=== PATIENT | female | born 1940 | race Two or more races ===

== ENCOUNTER 2020-09-25 21:04 | Inpatient (IN) | payer BC, MEDICARE ==
[~2020-09-25] VITALS: Ht 162.6 cm; Wt 90.0 kg
[2020-09-25 22:33] LABS: Basophils # (auto) 0 10 ^3/uL (0-0.2); Basophils % (auto) 0.5 % (0.0-2.0); Eosinophils # (auto) 0.1 10 ^3/uL (0-0.8); Eosinophils % (auto) 1.1 % (0.0-7.0); Hematocrit 37.3 % (36.0-46.0); Hemoglobin 12.8 g/dL (12.2-16.2); Lymphocytes # (auto) 0.8 10 ^3/uL (0.4-5.4); Lymphocytes % (auto) 8.4 % (10.0-50.0); Mean Corpuscular Hemoglobin 32.3 pg (28.0-32.0); Mean Corpuscular Hgb Conc. 34.4 g/dL (32.0-36.0); Mean Corpuscular Volume 93.7 fL (80.0-100.0); Monocytes # (auto) 0.8 10 ^3/uL (0-1.3); Monocytes % (auto) 8.5 % (0.0-12.0); Neutrophils # (auto) 7.9 10 ^3/uL (1.6-8.6); Neutrophils % (auto) 81.5 % (37.0-80.0); Red Blood Cells 3.98 10^6/uL (4.0-5.20); White Blood Cell 9.7 10^3/uL (4.4-10.8)
[2020-09-25 22:48] LABS: Albumin 2.4 g/dL (3.4-5.0); Anion Gap 11 (5-15); Calcium 8.4 mg/dL (8.5-10.1); Carbon Dioxide 19 mmol/L (21-32); Chloride 87 mmol/L (98-107); Glucose 109 mg/dL (74-106)
[2020-09-25 22:53] LABS: Urine Bacteria NONE SEEN /hpf (None Seen); Urine Blood 2+ /uL (Negative); Urine Budding Yeast MODERATE /hpf (None Seen); Urine Specific Gravity 1.014 (1.001-1.035); Urine WBC 72 /hpf (0 - 5); Urine WBC Clumps PRESENT /hpf (None Seen)
[2020-09-25 22:55] LABS: Alanine Aminotransferase 39 U/L (13-56); Alkaline Phosphatase 201 U/L (45-117); Aspartate Aminotransferase 55 U/L (15-37); BUN/Creatinine Ratio 20.2; Bilirubin, Total 0.9 mg/dL (0.2-1.0); GFR African American 8 mL/min; GFR Non-African American 7 mL/min; Total Protein 7.3 g/dL (6.4-8.2)
[2020-09-25 23:02] LABS: Blood Urea Nitrogen 132 mg/dL (7-18); Potassium 6.8 mmol/L (3.5-5.1); Sodium 117 mmol/L (136-145)
[2020-09-25] MEDS ORDERED: cefTRIAXone 1GM/50ML D5W 50 ML IV ONE (23:15)
[2020-09-25] MEDS ORDERED: DEXTROSE (50%) 50ML SYRG IV ONE (23:15)
[2020-09-25] MEDS ORDERED: ALBUTEROL SULF 2.5 MG/0.5ML(0.5%) NEB SOLN NEB ONE (23:15)
[2020-09-25] MEDS ORDERED: CALCIUM GLUC 1,000mg/50ml-NS 50 ML IV ONE (23:15)
[2020-09-25] MEDS ORDERED: SODIUM BICARBONATE 8.4% INJ 50ML SYRINGE IV ONE (23:15)
[2020-09-25] MEDS ORDERED: InsuLIN REG 1unit/0.01ml Soln (100units/ml) IV ONE (23:15)
[2020-09-25] MEDS ORDERED: SODIUM CHLORIDE 0.9% 1,000 ML IV ONE (23:45)
[2020-09-26] MEDS ORDERED: ONDANSETRON HCL 4 MG/2 ML VIAL IV PRN (00:45)
[2020-09-26] MEDS ORDERED: MORPHINE SULFATE INJECTION 2 MG/ML SYRG IV PRN (00:45)
[2020-09-26] MEDS ORDERED: SODIUM ZIRCONIUM CYCL 10 GM PAK PO ONE (00:45)
[2020-09-26] MEDS ORDERED: cefTRIAXone 1GM/50ML D5W 50 ML IV ONE (00:45)
[2020-09-26] MEDS ORDERED: SODIUM CHLORIDE 0.9% 500 ML IV ONE (00:45)
[2020-09-26] MEDS ORDERED: SODIUM CHLORIDE 0.9% 1,000 ML IV SCH (00:45)
[2020-09-26] MEDS ORDERED: NITROGLYCERIN 0.4 MG SL TAB SL PRN (00:45)
[2020-09-26] MEDS: LACTULOSE 20Gm/30ML SOLN PO SCH ×3 (01:33→21:22)
[2020-09-26 05:00] VITALS: BP 121/63
[2020-09-26 05:22] VITALS: BP 129/47
[2020-09-26] MEDS ORDERED: LISI20TA28 PO (08:01)
[2020-09-26] MEDS ORDERED: LEVO25TA6 PO (08:01)
[2020-09-26] MEDS ORDERED: AMIT50TA5 PO (08:01)
[2020-09-26] MEDS ORDERED: OMEP20TA PO (08:01)
[2020-09-26 09:00] VITALS: BP 120/53
[2020-09-26 10:15] LABS: Albumin 2.2 g/dL (3.4-5.0); Calcium 8.5 mg/dL (8.5-10.1); Magnesium 3.3 mg/dL (1.6-2.6); Potassium 5.4 mmol/L (3.5-5.1)
[2020-09-26 10:19] LABS: BUN/Creatinine Ratio 27.9; Bilirubin, Total 0.8 mg/dL (0.2-1.0); Phosphorus 5.4 mg/dL (2.5-4.90); Total Protein 7.1 g/dL (6.4-8.2)
[2020-09-26 10:20] LABS: Lactic Acid w/Reflex 2.6 mmol/L (0.4-2.0)
[2020-09-26 10:23] LABS: Folate (Folic Acid) 9.01 ng/mL (5.38-24)
[2020-09-26] MEDS: PANTOPRAZOLE 40 MG/10 ML VIAL INJ IV SCH (10:23)
[2020-09-26] MEDS: ACETAMINOPHEN 325 MG TAB PO PRN ×2 (10:24→17:29)
[2020-09-26] MEDS: SODIUM CHLORIDE 0.9% 1,000 ML IV SCH ×2 (10:30→17:47)
[2020-09-26 11:06] LABS: INR 1.14 (0.9-1.15); Partial Thromboplastin Time 36.4 sec (23.0-31.2)
[2020-09-26 12:30] VITALS: BP 126/58
[2020-09-26] MEDS ORDERED: OMEP-434 PO (15:38)
[2020-09-26] MEDS ORDERED: IBUP200C3 PO (15:39)
[2020-09-26] MEDS ORDERED: OMEG306C PO (15:41)
[2020-09-26] MEDS ORDERED: B-COCAP34 PO (15:41)
[2020-09-26 17:00] VITALS: BP 134/72
[2020-09-26 19:01] LABS: Creatinine, Urine 47 mg/dL (30.0-125.0); Protein, Urine < 5.0 mg/dL (0.0-11.9)
[2020-09-26 19:03] LABS: Amphetamine Screen, Urine NEGATIVE (NEGATIVE); Barbiturate Scree,Urine NEGATIVE (NEGATIVE); Benzodiazephine Screen, Urine NEGATIVE (NEGATIVE); Cannabinoid Screen, Urine NEGATIVE (NEGATIVE); Cocaine Screen, Urine NEGATIVE (NEGATIVE); Opiate Scree,Urine NEGATIVE (NEGATIVE); Phencyclidine Screen, Urine NEGATIVE (NEGATIVE)
[2020-09-26] MEDS ORDERED: D5W 5% 1,000 ML IV ONE (21:15)
[2020-09-26] MEDS: cefTRIAXone 1GM/50ML D5W 50 ML IV SCH (21:23)
[2020-09-26 21:42] VITALS: BP 134/67
[2020-09-26 21:47] LABS: Creatinine, Urine 49 mg/dL (30.0-125.0); Sodium Urine 14 mmol/L (40-220)
[2020-09-27 05:04] VITALS: BP 138/77
[2020-09-27 06:58] LABS: Basophils # (auto) 0.1 10 ^3/uL (0-0.2); Basophils % (auto) 1.1 % (0.0-2.0); Eosinophils # (auto) 0.2 10 ^3/uL (0-0.8); Hematocrit 33.1 % (36.0-46.0); Hemoglobin 11.4 g/dL (12.2-16.2); Lymphocytes # (auto) 0.9 10 ^3/uL (0.4-5.4); Lymphocytes % (auto) 14.2 % (10.0-50.0); Mean Corpuscular Hemoglobin 32.2 pg (28.0-32.0); Mean Corpuscular Hgb Conc. 34.6 g/dL (32.0-36.0); Mean Corpuscular Volume 93.1 fL (80.0-100.0); Monocytes # (auto) 0.8 10 ^3/uL (0-1.3); Monocytes % (auto) 12.3 % (0.0-12.0); Neutrophils # (auto) 4.4 10 ^3/uL (1.6-8.6); Neutrophils % (auto) 69.4 % (37.0-80.0); Red Blood Cells 3.56 10^6/uL (4.0-5.20); Red Cell Distribution Width 14.8 % (11.8-14.3); White Blood Cell 6.4 10^3/uL (4.4-10.8)
[2020-09-27 07:22] LABS: Albumin 1.9 g/dL (3.4-5.0); Calcium 8.3 mg/dL (8.5-10.1); Potassium 4.6 mmol/L (3.5-5.1)
[2020-09-27 07:27] LABS: BUN/Creatinine Ratio 45.3; Bilirubin, Total 0.7 mg/dL (0.2-1.0)
[2020-09-27] MEDS: LACTULOSE 20Gm/30ML SOLN PO SCH ×2 (08:25→21:38)
[2020-09-27] MEDS: PANTOPRAZOLE 40 MG/10 ML VIAL INJ IV SCH (08:25)
[2020-09-27 08:54] VITALS: BP 141/70
[2020-09-27] MEDS ORDERED: ENOXAPARIN SOD 30 MG/0.3 ML SYRINGE SC ONE (12:00)
[2020-09-27 13:00] VITALS: BP 121/73
[2020-09-27 17:00] VITALS: BP 114/58
[2020-09-27] MEDS: ACETAMINOPHEN 325 MG TAB PO PRN (17:53)
[2020-09-27] MEDS: cefTRIAXone 1GM/50ML D5W 50 ML IV SCH (21:38)
[2020-09-27 22:00] VITALS: BP 138/73
[2020-09-28 05:00] VITALS: BP 127/70
[2020-09-28 06:43] LABS: Basophils # (auto) 0 10 ^3/uL (0-0.2); Basophils % (auto) 0.5 % (0.0-2.0); Eosinophils # (auto) 0.2 10 ^3/uL (0-0.8); Eosinophils % (auto) 2.4 % (0.0-7.0); Hematocrit 35.8 % (36.0-46.0); Hemoglobin 12.3 g/dL (12.2-16.2); Lymphocytes # (auto) 1.1 10 ^3/uL (0.4-5.4); Lymphocytes % (auto) 14.9 % (10.0-50.0); Mean Corpuscular Hemoglobin 32.4 pg (28.0-32.0); Mean Corpuscular Hgb Conc. 34.3 g/dL (32.0-36.0); Mean Corpuscular Volume 94.4 fL (80.0-100.0); Monocytes # (auto) 0.8 10 ^3/uL (0-1.3); Monocytes % (auto) 10.3 % (0.0-12.0); Neutrophils # (auto) 5.3 10 ^3/uL (1.6-8.6); Neutrophils % (auto) 71.9 % (37.0-80.0); Red Blood Cells 3.79 10^6/uL (4.0-5.20); Red Cell Distribution Width 14.7 % (11.8-14.3); White Blood Cell 7.3 10^3/uL (4.4-10.8)
[2020-09-28 07:22] LABS: BUN/Creatinine Ratio 58.1; Calcium 8.3 mg/dL (8.5-10.1); Magnesium 2.1 mg/dL (1.6-2.6); Phosphorus 1.8 mg/dL (2.5-4.90); Potassium 4.2 mmol/L (3.5-5.1)
[2020-09-28] MEDS: LACTULOSE 20Gm/30ML SOLN PO SCH ×3 (08:00→22:39)
[2020-09-28] MEDS: ENOXAPARIN SOD 30 MG/0.3 ML SYRINGE SC SCH (08:00)
[2020-09-28] MEDS: PANTOPRAZOLE 40 MG/10 ML VIAL INJ IV SCH (08:00)
[2020-09-28 10:04] VITALS: BP 137/75
[2020-09-28 12:30] VITALS: BP 148/79
[2020-09-28] MEDS ORDERED: POTASSIUM PHOSPHATE 26.4 MEQ in SODIUM CHL 0.9% 100 ML IV ONE (12:45)
[2020-09-28] MEDS: ACETAMINOPHEN 325 MG TAB PO PRN (13:09)
[2020-09-28 17:00] VITALS: BP 135/76
[2020-09-28 22:00] VITALS: BP 155/65
[2020-09-28] MEDS: cefTRIAXone 1GM/50ML D5W 50 ML IV SCH (22:38)
[2020-09-29 05:00] VITALS: BP 134/71
[2020-09-29] MEDS: LACTULOSE 20Gm/30ML SOLN PO SCH ×3 (06:42→22:11)
[2020-09-29 08:05] LABS: BUN/Creatinine Ratio 43.3; Calcium 8.2 mg/dL (8.5-10.1); Magnesium 1.9 mg/dL (1.6-2.6); Phosphorus 2.3 mg/dL (2.5-4.90); Potassium 4.4 mmol/L (3.5-5.1)
[2020-09-29] MEDS: PANTOPRAZOLE 40 MG/10 ML VIAL INJ IV SCH (08:58)
[2020-09-29] MEDS: ENOXAPARIN SOD 30 MG/0.3 ML SYRINGE SC SCH (08:58)
[2020-09-29 09:00] VITALS: BP 135/78
[2020-09-29] MEDS ORDERED: POTASSIUM PHOSPHATE 22 MEQ in SODIUM CHL 0.9% 100 ML IV ONE (10:45)
[2020-09-29] MEDS ORDERED: D5W 5% 1,000 ML IV SCH ×2 (10:45→17:30)
[2020-09-29] MEDS: MAGNESIUM SULFATE 1GM/100ML 100 ML IV SCH ×2 (11:27→12:00)
[2020-09-29 13:00] VITALS: BP 148/78
[2020-09-29 17:00] VITALS: BP 139/71
[2020-09-29] MEDS ORDERED: FLUCONAZOLE 200MG/100ML 100 ML IV SCH (22:00)
[2020-09-29] MEDS: cefTRIAXone 1GM/50ML D5W 50 ML IV SCH (22:10)
[2020-09-29 22:20] VITALS: BP 149/73
[2020-09-30 05:07] VITALS: BP 148/70
[2020-09-30] MEDS: LACTULOSE 20Gm/30ML SOLN PO SCH ×3 (06:26→22:00)
[2020-09-30 08:40] VITALS: BP 143/75
[2020-09-30] MEDS: ENOXAPARIN SOD 30 MG/0.3 ML SYRINGE SC SCH (08:57)
[2020-09-30] MEDS: PANTOPRAZOLE 40 MG/10 ML VIAL INJ IV SCH (08:57)
[2020-09-30] MEDS: Ensure HIGH Protein Chocolate 8oz Bottle PO SCH ×2 (12:00→18:00)
[2020-09-30 13:00] VITALS: BP 137/82
[2020-09-30 16:39] VITALS: BP 129/71
[2020-09-30] MEDS: cefTRIAXone 1GM/50ML D5W 50 ML IV SCH (21:52)
[2020-09-30 22:25] VITALS: BP 139/74
[2020-10-01 05:26] VITALS: BP 137/73
[2020-10-01 06:19] LABS: Basophils # (auto) 0 10 ^3/uL (0-0.2); Basophils % (auto) 0.5 % (0.0-2.0); Eosinophils # (auto) 0.4 10 ^3/uL (0-0.8); Eosinophils % (auto) 3.7 % (0.0-7.0); Hematocrit 34.3 % (36.0-46.0); Lymphocytes # (auto) 1.6 10 ^3/uL (0.4-5.4); Lymphocytes % (auto) 16.5 % (10.0-50.0); Mean Corpuscular Volume 94.1 fL (80.0-100.0); Monocytes # (auto) 0.6 10 ^3/uL (0-1.3); Monocytes % (auto) 6.6 % (0.0-12.0); Neutrophils % (auto) 72.7 % (37.0-80.0); Red Blood Cells 3.65 10^6/uL (4.0-5.20); Red Cell Distribution Width 14.8 % (11.8-14.3); White Blood Cell 9.6 10^3/uL (4.4-10.8)
[2020-10-01 06:32] LABS: BUN/Creatinine Ratio 43.9; Calcium 7.8 mg/dL (8.5-10.1); Potassium 3.9 mmol/L (3.5-5.1)
[2020-10-01 09:00] VITALS: BP 129/72
[2020-10-01] MEDS: Ensure HIGH Protein Chocolate 8oz Bottle PO SCH ×3 (09:02→17:55)
[2020-10-01] MEDS: PANTOPRAZOLE 40 MG TAB PO SCH (12:05)
[2020-10-01] MEDS: LACTULOSE 20Gm/30ML SOLN PO SCH ×2 (12:05→21:34)
[2020-10-01] MEDS: ENOXAPARIN SOD 30 MG/0.3 ML SYRINGE SC SCH (12:05)
[2020-10-01 13:00] VITALS: BP 133/68
[2020-10-01 17:00] VITALS: BP 134/73
[2020-10-01] MEDS: cefTRIAXone 1GM/50ML D5W 50 ML IV SCH (21:35)
[2020-10-01 22:00] VITALS: BP 140/77
[2020-10-02 05:00] VITALS: BP 141/74
[2020-10-02] MEDS: Ensure HIGH Protein Chocolate 8oz Bottle PO SCH ×3 (08:11→18:00)
[2020-10-02 09:00] VITALS: BP 152/61
[2020-10-02] MEDS: LACTULOSE 20Gm/30ML SOLN PO SCH ×3 (09:29→21:24)
[2020-10-02] MEDS: ENOXAPARIN SOD 30 MG/0.3 ML SYRINGE SC SCH (09:29)
[2020-10-02] MEDS: PANTOPRAZOLE 40 MG TAB PO SCH (09:29)
[2020-10-02] MEDS: ACETAMINOPHEN 325 MG TAB PO PRN (09:30)
[2020-10-02 13:00] VITALS: BP 130/58
[2020-10-02 17:00] VITALS: BP 124/86
[2020-10-02] MEDS: cefTRIAXone 1GM/50ML D5W 50 ML IV SCH (21:24)
[2020-10-02 22:00] VITALS: BP 129/74
[2020-10-03 05:00] VITALS: BP 131/57
[2020-10-03] MEDS: Ensure HIGH Protein Chocolate 8oz Bottle PO SCH ×4 (08:00→18:00)
[2020-10-03 09:00] VITALS: BP 152/79
[2020-10-03] MEDS ORDERED: FLUCONAZOLE 100 MG TAB PO SCH (10:00)
[2020-10-03] MEDS: PANTOPRAZOLE 40 MG TAB PO SCH (10:18)
[2020-10-03] MEDS: LACTULOSE 20Gm/30ML SOLN PO SCH ×2 (10:18→22:23)
[2020-10-03] MEDS: CALCIUM CARB 500 MG CHEW TAB PO SCH ×2 (10:19→22:23)
[2020-10-03] MEDS: levoFLOXacin 500 MG TAB PO SCH (10:19)
[2020-10-03] MEDS: ENOXAPARIN SOD 40 MG/0.4 ML SYRINGE SC SCH (10:19)
[2020-10-03 12:54] VITALS: BP 115/48
[2020-10-03] MEDS: ACETAMINOPHEN 325 MG TAB PO PRN (16:04)
[2020-10-03 17:00] VITALS: BP 136/67
[2020-10-03] MEDS: Glucerna Carbsteady SHAKE Vanilla 8oz PO SCH (18:00)
[2020-10-03 20:59] LABS: Urine Bacteria FEW /hpf (None Seen); Urine Blood 3+ /uL (Negative); Urine Mucus FEW (None Seen); Urine WBC 19 /hpf (0 - 5)
[2020-10-03 22:00] VITALS: BP 130/77
[2020-10-04 05:00] VITALS: BP 149/65
[2020-10-04 07:16] LABS: Basophils # (auto) 0 10 ^3/uL (0-0.2); Basophils % (auto) 0.3 % (0.0-2.0); Eosinophils # (auto) 0.2 10 ^3/uL (0-0.8); Eosinophils % (auto) 1.7 % (0.0-7.0); Hematocrit 33.5 % (36.0-46.0); Hemoglobin 11.4 g/dL (12.2-16.2); Lymphocytes # (auto) 1.2 10 ^3/uL (0.4-5.4); Mean Corpuscular Hemoglobin 32.3 pg (28.0-32.0); Mean Corpuscular Volume 94.9 fL (80.0-100.0); Monocytes # (auto) 0.8 10 ^3/uL (0-1.3); Monocytes % (auto) 8.4 % (0.0-12.0); Neutrophils # (auto) 7.3 10 ^3/uL (1.6-8.6); Neutrophils % (auto) 76.6 % (37.0-80.0); Nucleated Red Blood Cells % 0.1 %; Red Blood Cells 3.53 10^6/uL (4.0-5.20); Red Cell Distribution Width 14.8 % (11.8-14.3); White Blood Cell 9.5 10^3/uL (4.4-10.8)
[2020-10-04 07:38] LABS: Albumin 2.1 g/dL (3.4-5.0); Calcium 7.7 mg/dL (8.5-10.1); Potassium 4.1 mmol/L (3.5-5.1)
[2020-10-04 07:43] LABS: BUN/Creatinine Ratio 38.1; Bilirubin, Total 1.6 mg/dL (0.2-1.0); Total Protein 5.9 g/dL (6.4-8.2)
[2020-10-04] MEDS: Glucerna Carbsteady SHAKE Vanilla 8oz PO SCH ×2 (08:00→18:29)
[2020-10-04] MEDS: Ensure HIGH Protein Chocolate 8oz Bottle PO SCH ×3 (08:00→18:29)
[2020-10-04 09:00] VITALS: BP 141/73
[2020-10-04] MEDS: Pro-Stat SF 30ml Vanilla PO SCH (10:00)
[2020-10-04] MEDS: LACTULOSE 20Gm/30ML SOLN PO SCH ×2 (11:22→21:31)
[2020-10-04] MEDS: FLUCONAZOLE 100 MG TAB PO SCH (11:22)
[2020-10-04] MEDS: ENOXAPARIN SOD 40 MG/0.4 ML SYRINGE SC SCH (11:23)
[2020-10-04] MEDS: levoFLOXacin 500 MG TAB PO SCH (11:23)
[2020-10-04] MEDS: CALCIUM CARB 500 MG CHEW TAB PO SCH ×2 (11:23→21:31)
[2020-10-04] MEDS: PANTOPRAZOLE 40 MG TAB PO SCH (11:24)
[2020-10-04 13:00] VITALS: BP 121/69
[2020-10-04 17:00] VITALS: BP 123/63
[2020-10-04 22:00] VITALS: BP 144/46
[2020-10-05 05:00] VITALS: BP 140/57
[2020-10-05 08:15] VITALS: BP 116/59
[2020-10-05] MEDS: Glucerna Carbsteady SHAKE Vanilla 8oz PO SCH ×2 (08:27→17:43)
[2020-10-05] MEDS: Ensure HIGH Protein Chocolate 8oz Bottle PO SCH ×3 (08:27→17:43)
[2020-10-05 08:52] VITALS: BP 116/59
[2020-10-05] MEDS: CALCIUM CARB 500 MG CHEW TAB PO SCH ×2 (10:02→21:21)
[2020-10-05] MEDS: Pro-Stat SF 30ml Vanilla PO SCH (10:02)
[2020-10-05] MEDS: ENOXAPARIN SOD 40 MG/0.4 ML SYRINGE SC SCH (10:02)
[2020-10-05] MEDS: PANTOPRAZOLE 40 MG TAB PO SCH (10:02)
[2020-10-05] MEDS: LACTULOSE 20Gm/30ML SOLN PO SCH ×2 (10:02→21:21)
[2020-10-05] MEDS: levoFLOXacin 500 MG TAB PO SCH (10:02)
[2020-10-05] MEDS: FLUCONAZOLE 100 MG TAB PO SCH (10:02)
[2020-10-05] MEDS ORDERED: POLYETHYLENE GLYCOL 17 GM PWDR PO ONE (11:45)
[2020-10-05 13:03] VITALS: BP 134/83
[2020-10-05] MEDS: ACETAMINOPHEN 325 MG TAB PO PRN (15:47)
[2020-10-05 16:57] VITALS: BP 139/64
[2020-10-05] MEDS ORDERED: FLEET ENEMA(ADULT) 135 ML PR ONE (21:18)
[2020-10-05 21:53] VITALS: BP 109/49
[2020-10-06] VITALS (7 sets, daily range): BP systolic 102–124; BP diastolic 49–77
[2020-10-06] MEDS: ACETAMINOPHEN 325 MG TAB PO PRN ×2 (01:54→10:31)
[2020-10-06] MEDS: Glucerna Carbsteady SHAKE Vanilla 8oz PO SCH (08:10)
[2020-10-06] MEDS: Ensure HIGH Protein Chocolate 8oz Bottle PO SCH ×3 (08:10→17:39)
[2020-10-06] MEDS ORDERED: BISACODYL 5 MG EC TAB PO ONE (08:15)
[2020-10-06] MEDS ORDERED: POLYETHYLENE GLYCOL 17 GM PWDR PO ONE (08:15)
[2020-10-06] MEDS: Pro-Stat SF 30ml Vanilla PO SCH (10:30)
[2020-10-06] MEDS: CALCIUM CARB 500 MG CHEW TAB PO SCH ×2 (10:30→23:22)
[2020-10-06] MEDS: LACTULOSE 20Gm/30ML SOLN PO SCH ×2 (10:30→23:22)
[2020-10-06] MEDS: FLUCONAZOLE 100 MG TAB PO SCH (10:30)
[2020-10-06] MEDS: levoFLOXacin 500 MG TAB PO SCH (10:30)
[2020-10-06] MEDS: PANTOPRAZOLE 40 MG TAB PO SCH (10:30)
[2020-10-06] MEDS: ENOXAPARIN SOD 40 MG/0.4 ML SYRINGE SC SCH (10:31)
[2020-10-07 05:00] VITALS: BP 122/72
[2020-10-07 08:15] VITALS: BP 134/66
[2020-10-07] MEDS: Ensure HIGH Protein Chocolate 8oz Bottle PO SCH ×2 (08:27→11:52)
[2020-10-07 09:00] VITALS: BP 134/66
[2020-10-07] MEDS ORDERED: POLYETHYLENE GLYCOL 17 GM PWDR PO SCH (10:00)
[2020-10-07] MEDS: PANTOPRAZOLE 40 MG TAB PO SCH (10:14)
[2020-10-07] MEDS: Pro-Stat SF 30ml Vanilla PO SCH (10:14)
[2020-10-07] MEDS: levoFLOXacin 500 MG TAB PO SCH (10:14)
[2020-10-07] MEDS: LACTULOSE 20Gm/30ML SOLN PO SCH (10:14)
[2020-10-07] MEDS: CALCIUM CARB 500 MG CHEW TAB PO SCH (10:14)
[2020-10-07] MEDS: ENOXAPARIN SOD 40 MG/0.4 ML SYRINGE SC SCH (10:14)
[2020-10-07] MEDS: FLUCONAZOLE 100 MG TAB PO SCH (10:14)
== END 2020-10-07 12:25 | DRG 441 ==
LOC: EDBD 21:04 → ER 21:07 → TELE 09-26 00:32 → TELE-CENTR 09-26 02:50 → CENTRAL 10-02 23:05
PROVIDERS: ADMIT Nurse Practitioner; ATTEND Internal Medicine
PROC: 05H933Z Insertion of Infusion Device into Right Brachial Vein, Percutaneous Approach (ICD-10-PCS; principal; 2020-09-29)
PROC: B54MZZA Ultrasonography of Right Upper Extremity Veins, Guidance (ICD-10-PCS; 2020-09-29)
DX: K72.90 Hepatic failure, unspecified without coma (principal); G92 Toxic encephalopathy; E43 Unspecified severe protein-calorie malnutrition; N17.0 Acute kidney failure with tubular necrosis; E87.1 Hypo-osmolality and hyponatremia; E72.20 Disorder of urea cycle metabolism, unspecified; N30.00 Acute cystitis without hematuria; E87.5 Hyperkalemia; E66.9 Obesity, unspecified; Z66 Do not resuscitate; K21.9 Gastro-esophageal reflux disease without esophagitis; Z20.822 Contact with and (suspected) exposure to COVID-19; E03.9 Hypothyroidism, unspecified; K76.0 Fatty (change of) liver, not elsewhere classified; Z68.36 Body mass index [BMI] 36.0-36.9, adult; F17.200 Nicotine dependence, unspecified, uncomplicated; I10 Essential (primary) hypertension; Z74.01 Bed confinement status; Z80.7 Family history of other malignant neoplasms of lymphoid, hematopoietic and related tissues; Z82.0 Family history of epilepsy and other diseases of the nervous system; Z83.3 Family history of diabetes mellitus; Z87.440 Personal history of urinary (tract) infections
CPT/HCPCS: 36415; 51702; 70450; 71045; 76775; 80048; 80053; 80307; 81001; 82140; 82306; 82550; 82570; 82607; 82746; 82962; 83036; 83605; 83735; 83880; 84100; 84156; 84295; 84300; 84443; 84484; 85025; 85610; 85730; 86592; 87040; 87081; 87086; 87088; 87426; 93005; 93306; 94640; 95819; 96361; 96365; 96367; 96375; 97110; 97116; 97530; C9113; G0378; J0696; J1450; J1815

== ENCOUNTER → 2021-02-14 | Outpatient (CLI) | payer MEDICARE, BC ==
[~2021-02-14] MED LIST: AMIT50TA5 PO; B-COCAP34 PO; IBUP200C3 PO; LEVO25TA6 PO; LISI20TA28 PO; OMEG306C PO; OMEP-434 PO
[2021-02-14 11:18] LABS: Basophils # (auto) 0 10 ^3/uL (0-0.2); Eosinophils # (auto) 0.2 10 ^3/uL (0-0.8); Eosinophils % (auto) 4.7 % (0.0-7.0); Hematocrit 34.5 % (36.0-46.0); Hemoglobin 11.7 g/dL (12.2-16.2); Lymphocytes # (auto) 1.2 10 ^3/uL (0.4-5.4); Lymphocytes % (auto) 36.9 % (10.0-50.0); Mean Corpuscular Hemoglobin 30.6 pg (28.0-32.0); Mean Corpuscular Hgb Conc. 33.8 g/dL (32.0-36.0); Mean Corpuscular Volume 90.4 fL (80.0-100.0); Monocytes # (auto) 0.4 10 ^3/uL (0-1.3); Monocytes % (auto) 12.2 % (0.0-12.0); Neutrophils # (auto) 1.5 10 ^3/uL (1.6-8.6); Neutrophils % (auto) 45.2 % (37.0-80.0); Nucleated Red Blood Cells % 0.1 %; Red Blood Cells 3.82 10^6/uL (4.0-5.20); Red Cell Distribution Width 16.7 % (11.8-14.3); White Blood Cell 3.3 10^3/uL (4.4-10.8)
[2021-02-14 12:03] LABS: Albumin 2.5 g/dL (3.4-5.0); Calcium 8.1 mg/dL (8.5-10.1); Potassium 4.2 mmol/L (3.5-5.1)
[2021-02-14 12:08] LABS: BUN/Creatinine Ratio 13.1; Bilirubin, Total 1.3 mg/dL (0.2-1.0); Total Protein 6.2 g/dL (6.4-8.2)
== END | disposition home or self-care (01) ==
LOC: LAB 10:54
PROVIDERS: ATTEND Internal Medicine
DX: R53.83 Other fatigue (principal); Z79.899 Other long term (current) drug therapy
CPT/HCPCS: 36415; 80053; 80061; 82306; 82607; 83036; 84443; 85025

== ENCOUNTER → 2021-05-15 | Outpatient (CLI) | payer BC ==
[2021-05-15 14:08] LABS: Albumin 2.8 g/dL (3.4-5.0); Potassium 3.9 mmol/L (3.5-5.1)
[2021-05-15 14:18] LABS: BUN/Creatinine Ratio 15.2; Bilirubin, Total 1.2 mg/dL (0.2-1.0); Calcium 8.8 mg/dL (8.5-10.1)
== END | disposition home or self-care (01) ==
LOC: LAB 07:30
PROVIDERS: ATTEND Student in an Organized Health Care Education/Training Program
DX: K74.69 Other cirrhosis of liver (principal)
CPT/HCPCS: 36415; 80053

== ENCOUNTER 2022-01-04 13:55 | Inpatient (IN) | payer OTHER, BC ==
[~2022-01-04] VITALS: Ht 162.6 cm; Wt 91.6 kg
[2022-01-04 15:52] LABS: Basophils # (auto) 0 10 ^3/uL (0-0.2); Basophils % (auto) 0.8 % (0.0-2.0); Eosinophils # (auto) 0.1 10 ^3/uL (0-0.8); Eosinophils % (auto) 2.1 % (0.0-7.0); Hematocrit 33.8 % (36.0-46.0); Hemoglobin 11.4 g/dL (12.2-16.2); Lymphocytes # (auto) 0.9 10 ^3/uL (0.4-5.4); Lymphocytes % (auto) 28.8 % (10.0-50.0); Mean Corpuscular Hemoglobin 32.5 pg (28.0-32.0); Mean Corpuscular Hgb Conc. 33.8 g/dL (32.0-36.0); Mean Corpuscular Volume 96.2 fL (80.0-100.0); Monocytes # (auto) 0.4 10 ^3/uL (0-1.3); Monocytes % (auto) 11.9 % (0.0-12.0); Neutrophils # (auto) 1.7 10 ^3/uL (1.6-8.6); Neutrophils % (auto) 56.4 % (37.0-80.0); Nucleated Red Blood Cells % 0.3 %; Red Blood Cells 3.51 10^6/uL (4.0-5.20); Red Cell Distribution Width 14.5 % (11.8-14.3)
[2022-01-04 16:10] LABS: Albumin 2.7 g/dL (3.4-5.0); BUN/Creatinine Ratio 41.5; Calcium 8.2 mg/dL (8.5-10.1); Potassium 4.1 mmol/L (3.5-5.1)
[2022-01-04 16:13] LABS: Bilirubin, Total 1.2 mg/dL (0.2-1.0); Total Protein 5.6 g/dL (6.4-8.2)
[2022-01-04] MEDS ORDERED: MORPHINE SULFATE 4 MG/ML SYR/VIAL IV ONE ×2 (16:15→22:15)
[2022-01-04] MEDS ORDERED: ONDANSETRON HCL 4 MG/2 ML VIAL IV ONE ×2 (16:15→22:15)
[2022-01-04] MEDS ORDERED: NITROGLYCERIN 0.4 MG SL TAB SL PRN (22:00)
[2022-01-04] MEDS ORDERED: HYDROcodone-ACET 5/325MG TAB PO PRN (22:00)
[2022-01-04] MEDS ORDERED: ONDANSETRON HCL 4 MG/2 ML VIAL IV PRN (22:00)
[2022-01-04] MEDS ORDERED: ACETAMINOPHEN 325 MG TAB PO PRN (22:00)
[2022-01-04] MEDS: ASCORBIC ACID 500 MG TAB PO SCH (22:00)
[2022-01-04] MEDS ORDERED: DOCUSATE SOD 100 MG CAP PO PRN (22:00)
[2022-01-04] MEDS ORDERED: MORPHINE SULFATE INJ 2 MG/ml SYRG IV PRN (22:00)
[2022-01-04 22:08] LABS: Urine Bacteria MOD /hpf (None Seen); Urine Blood 1+ /uL (Negative); Urine Mucus FEW (None Seen); Urine Specific Gravity 1.026 (1.001-1.035); Urine WBC 34 /hpf (0 - 5)
[2022-01-04] MEDS ORDERED: ALBUMIN 25% 100 ML IV ONE (22:30)
[2022-01-04] MEDS: FAMOTIDINE (10MG/ML) 2ML VL IV SCH (23:00)
[2022-01-05] VITALS (10 sets, daily range): BP systolic 97–136; BP diastolic 39–58
[2022-01-05] MEDS: SOD CHL 0.45% 1,000 ML IV SCH ×2 (00:21→06:44)
[2022-01-05] MEDS ORDERED: MORPHINE SULFATE INJ 2 MG/ml SYRG IV PRN (03:30)
[2022-01-05 05:12] LABS: Basophils # (auto) 0 10 ^3/uL (0-0.2); Basophils % (auto) 0.6 % (0.0-2.0); Eosinophils # (auto) 0 10 ^3/uL (0-0.8); Eosinophils % (auto) 0.2 % (0.0-7.0); Hematocrit 30.1 % (36.0-46.0); Hemoglobin 10.6 g/dL (12.2-16.2); Lymphocytes # (auto) 1.4 10 ^3/uL (0.4-5.4); Lymphocytes % (auto) 29.2 % (10.0-50.0); Mean Corpuscular Hemoglobin 33.8 pg (28.0-32.0); Mean Corpuscular Hgb Conc. 35.2 g/dL (32.0-36.0); Monocytes # (auto) 0.6 10 ^3/uL (0-1.3); Monocytes % (auto) 11.8 % (0.0-12.0); Neutrophils # (auto) 2.9 10 ^3/uL (1.6-8.6); Neutrophils % (auto) 58.2 % (37.0-80.0); Red Blood Cells 3.14 10^6/uL (4.0-5.20); Red Cell Distribution Width 14.5 % (11.8-14.3)
[2022-01-05 05:25] LABS: Potassium 4.3 mmol/L (3.5-5.1)
[2022-01-05 05:31] LABS: Albumin 3.1 g/dL (3.4-5.0); BUN/Creatinine Ratio 48.3; Calcium 8.2 mg/dL (8.5-10.1)
[2022-01-05 05:34] LABS: Bilirubin, Total 1.5 mg/dL (0.2-1.0); Total Protein 5.6 g/dL (6.4-8.2)
[2022-01-05] MEDS: LEVOTHYROXINE SODIUM 25 MCG TAB PO SCH (06:43)
[2022-01-05] MEDS: MORPHINE SULFATE INJ 2 MG/ml SYRG IV PRN ×3 (06:44→20:10)
[2022-01-05] MEDS ORDERED: ENOXAPARIN SOD 40 MG/0.4 ML SYRINGE SC SCH (10:00)
[2022-01-05] MEDS: ZINC SULFATE 220mg CAP or TAB PO SCH (10:25)
[2022-01-05] MEDS: FAMOTIDINE (10MG/ML) 2ML VL IV SCH ×2 (10:25→22:33)
[2022-01-05] MEDS: MULTIPLE VITAMIN TAB PO SCH (10:25)
[2022-01-05] MEDS: ASCORBIC ACID 500 MG TAB PO SCH ×2 (10:32→22:32)
[2022-01-05] MEDS ORDERED: QUET1TAB11 PO (16:15)
[2022-01-05] MEDS ORDERED: HYDR10TA26 PO (16:15)
[2022-01-05] MEDS ORDERED: SENN1TAB14 PO (16:15)
[2022-01-05] MEDS ORDERED: TRAM50TA2 PO (16:15)
[2022-01-05] MEDS ORDERED: ASPI325T4 PO (16:15)
[2022-01-05] MEDS ORDERED: LISI-275 PO (16:15)
[2022-01-05] MEDS ORDERED: PANT40T PO (16:15)
[2022-01-06] MEDS: MORPHINE SULFATE INJ 2 MG/ml SYRG IV PRN ×2 (02:12→06:28)
[2022-01-06 05:00] VITALS: BP 124/48
[2022-01-06] MEDS: SOD CHL 0.45% 1,000 ML IV SCH (06:26)
[2022-01-06] MEDS: LEVOTHYROXINE SODIUM 25 MCG TAB PO SCH (06:27)
[2022-01-06 09:00] VITALS: BP 106/44
[2022-01-06] MEDS: FAMOTIDINE (10MG/ML) 2ML VL IV SCH ×2 (09:33→22:49)
[2022-01-06] MEDS: MULTIPLE VITAMIN TAB PO SCH (09:34)
[2022-01-06] MEDS: ZINC SULFATE 220mg CAP or TAB PO SCH (09:34)
[2022-01-06] MEDS: ASCORBIC ACID 500 MG TAB PO SCH ×2 (09:34→22:48)
[2022-01-06 10:04] LABS: INR 1.25 (0.9-1.15)
[2022-01-06 13:00] VITALS: BP 121/59
[2022-01-06 17:00] VITALS: BP 117/63
[2022-01-06 22:00] VITALS: BP 118/43
[2022-01-07] VITALS (11 sets, daily range): BP systolic 114–143; BP diastolic 47–69
[2022-01-07] MEDS: SOD CHL 0.45% 1,000 ML IV SCH (01:57)
[2022-01-07] MEDS: LEVOTHYROXINE SODIUM 25 MCG TAB PO SCH (06:46)
[2022-01-07 07:39] LABS: Basophils # (auto) 0 10 ^3/uL (0-0.2); Basophils % (auto) 0.6 % (0.0-2.0); Eosinophils # (auto) 0.1 10 ^3/uL (0-0.8); Eosinophils % (auto) 2.3 % (0.0-7.0); Hematocrit 28.4 % (36.0-46.0); Hemoglobin 10.1 g/dL (12.2-16.2); Lymphocytes # (auto) 1.6 10 ^3/uL (0.4-5.4); Mean Corpuscular Hgb Conc. 35.7 g/dL (32.0-36.0); Mean Corpuscular Volume 95.3 fL (80.0-100.0); Monocytes # (auto) 0.7 10 ^3/uL (0-1.3); Monocytes % (auto) 14.9 % (0.0-12.0); Neutrophils # (auto) 2.4 10 ^3/uL (1.6-8.6); Neutrophils % (auto) 50.2 % (37.0-80.0); Nucleated Red Blood Cells % 0.1 %; Red Blood Cells 2.98 10^6/uL (4.0-5.20); Red Cell Distribution Width 14.3 % (11.8-14.3); White Blood Cell 4.9 10^3/uL (4.4-10.8)
[2022-01-07 07:49] LABS: INR 1.31 (0.9-1.15); Partial Thromboplastin Time 30.5 sec (24.6-33.4)
[2022-01-07 08:08] LABS: Albumin 2.6 g/dL (3.4-5.0); Calcium 7.6 mg/dL (8.5-10.1); Potassium 3.4 mmol/L (3.5-5.1)
[2022-01-07 08:11] LABS: BUN/Creatinine Ratio 25.5; Magnesium 1.7 mg/dL (1.6-2.6)
[2022-01-07 08:14] LABS: Bilirubin, Total 1.9 mg/dL (0.2-1.0); Total Protein 5.3 g/dL (6.4-8.2)
[2022-01-07 09:08] LABS: Basophils # (auto) 0 10 ^3/uL (0-0.2); Basophils % (auto) 0.7 % (0.0-2.0); Eosinophils # (auto) 0.1 10 ^3/uL (0-0.8); Eosinophils % (auto) 2.2 % (0.0-7.0); Hematocrit 28.6 % (36.0-46.0); Lymphocytes # (auto) 1.4 10 ^3/uL (0.4-5.4); Mean Corpuscular Hemoglobin 33.7 pg (28.0-32.0); Mean Corpuscular Hgb Conc. 35.1 g/dL (32.0-36.0); Mean Corpuscular Volume 96.1 fL (80.0-100.0); Monocytes # (auto) 0.7 10 ^3/uL (0-1.3); Monocytes % (auto) 16.1 % (0.0-12.0); Neutrophils # (auto) 2.3 10 ^3/uL (1.6-8.6); Nucleated Red Blood Cells % 0.3 %; Red Blood Cells 2.98 10^6/uL (4.0-5.20); Red Cell Distribution Width 14.6 % (11.8-14.3); White Blood Cell 4.6 10^3/uL (4.4-10.8)
[2022-01-07] MEDS ORDERED: POTASSIUM CHL 20MEQ/100ML 100 ML IV ONE (09:30)
[2022-01-07] MEDS ORDERED: DexAMETHasone SOD PHOS 10MG/1ML VIAL INJ ONE ×3 (09:56→12:05)
[2022-01-07] MEDS ORDERED: ONDANSETRON HCL 4 MG/2 ML VIAL ONE (09:56)
[2022-01-07] MEDS ORDERED: GLYCOPYRROLATE 0.2 MG/ML 1ML VIAL ONE (09:56)
[2022-01-07] MEDS ORDERED: LIDOCAINE 2% (LOCAL ANESTH.) PF 5ml SDV ONE (09:56)
[2022-01-07] MEDS ORDERED: PROPOFOL 10 MG/ML 20 ML IV ONE (09:56)
[2022-01-07] MEDS ORDERED: ceFAZolin 1GM/50ML 100 ML IV ONE (09:58)
[2022-01-07] MEDS ORDERED: ePHEDrine SULFATE 50 MG/ML AMP IV ONE (09:59)
[2022-01-07] MEDS: ZINC SULFATE 220mg CAP or TAB PO SCH (10:00)
[2022-01-07] MEDS: MULTIPLE VITAMIN TAB PO SCH (10:00)
[2022-01-07] MEDS: ASCORBIC ACID 500 MG TAB PO SCH ×2 (10:00→21:19)
[2022-01-07] MEDS ORDERED: MAGNESIUM SULFATE 1GM/100ML 100 ML IV SCH (10:00)
[2022-01-07] MEDS: FAMOTIDINE (10MG/ML) 2ML VL IV SCH ×2 (10:00→21:19)
[2022-01-07] MEDS ORDERED: BUPIVACAINE 0.25% INJ 50ML VIAL ONE (10:08)
[2022-01-07] MEDS ORDERED: fentaNYL CITRATE 100 MCG/2 ML VL ONE (10:33)
[2022-01-07] MEDS ORDERED: GENTAMICIN SULFATE 80 MG in D5W 5% 100 ML IV STA (10:41)
[2022-01-07] MEDS ORDERED: ROCURONIUM 10MG/ML 10ML VIAL IV ONE (10:42)
[2022-01-07] MEDS ORDERED: GENTAMICIN SULF 80 MG/2 ML VIAL IR ONE (11:45)
[2022-01-07] MEDS ORDERED: VANCOMYCIN HCL 1000 MG VL ONE ×2 (11:46→12:17)
[2022-01-07] MEDS ORDERED: SUGAMMADEX 200mg/2ml Vial (100MG/ML) IV ONE (11:52)
[2022-01-07] MEDS: ceFAZolin 2 GM in D5W 5% 100 ML IV SCH (19:05)
[2022-01-07] MEDS: ASPirin 81 mg TAB PO SCH (21:19)
[2022-01-08] MEDS: ceFAZolin 2 GM in D5W 5% 100 ML IV SCH ×2 (02:15→10:00)
[2022-01-08] MEDS: SOD CHL 0.45% 1,000 ML IV SCH (04:00)
[2022-01-08 06:09] LABS: Basophils # (auto) 0 10 ^3/uL (0-0.2); Basophils % (auto) 0.1 % (0.0-2.0); Eosinophils # (auto) 0 10 ^3/uL (0-0.8); Hematocrit 25.2 % (36.0-46.0); Hemoglobin 9.1 g/dL (12.2-16.2); Lymphocytes # (auto) 0.9 10 ^3/uL (0.4-5.4); Lymphocytes % (auto) 9.9 % (10.0-50.0); Mean Corpuscular Hemoglobin 34.2 pg (28.0-32.0); Mean Corpuscular Hgb Conc. 36.2 g/dL (32.0-36.0); Mean Corpuscular Volume 94.3 fL (80.0-100.0); Monocytes # (auto) 1.1 10 ^3/uL (0-1.3); Monocytes % (auto) 11.4 % (0.0-12.0); Neutrophils # (auto) 7.4 10 ^3/uL (1.6-8.6); Neutrophils % (auto) 78.6 % (37.0-80.0); Red Blood Cells 2.67 10^6/uL (4.0-5.20); Red Cell Distribution Width 14.1 % (11.8-14.3); White Blood Cell 9.5 10^3/uL (4.4-10.8)
[2022-01-08 06:24] LABS: BUN/Creatinine Ratio 24.6; Potassium 4.1 mmol/L (3.5-5.1)
[2022-01-08 06:25] LABS: Calcium 7.6 mg/dL (8.5-10.1); Magnesium 1.7 mg/dL (1.6-2.6)
[2022-01-08] MEDS: LEVOTHYROXINE SODIUM 25 MCG TAB PO SCH (06:48)
[2022-01-08 08:30] VITALS: BP 98/46
[2022-01-08] MEDS: ASCORBIC ACID 500 MG TAB PO SCH ×2 (09:24→21:58)
[2022-01-08] MEDS: FAMOTIDINE (10MG/ML) 2ML VL IV SCH ×2 (09:25→21:58)
[2022-01-08] MEDS: ASPirin 81 mg TAB PO SCH ×2 (09:25→21:58)
[2022-01-08] MEDS: ZINC SULFATE 220mg CAP or TAB PO SCH (09:25)
[2022-01-08] MEDS: MULTIPLE VITAMIN TAB PO SCH (09:25)
[2022-01-08 13:00] VITALS: BP 111/62
[2022-01-08] MEDS: traMADol HCL 50 MG TAB PO PRN (18:40)
[2022-01-08 20:00] VITALS: BP 106/55
[2022-01-08 22:09] VITALS: BP 106/55
[2022-01-09] VITALS (7 sets, daily range): BP systolic 100–110; BP diastolic 42–86
[2022-01-09] MEDS: SOD CHL 0.45% 1,000 ML IV SCH ×2 (03:08→23:30)
[2022-01-09] MEDS: LEVOTHYROXINE SODIUM 25 MCG TAB PO SCH (06:26)
[2022-01-09 07:18] LABS: Basophils # (auto) 0 10 ^3/uL (0-0.2); Eosinophils # (auto) 0 10 ^3/uL (0-0.8); Hemoglobin 8.6 g/dL (12.2-16.2); Lymphocytes # (auto) 1.5 10 ^3/uL (0.4-5.4); Monocytes # (auto) 1.4 10 ^3/uL (0-1.3); Neutrophils # (auto) 6.4 10 ^3/uL (1.6-8.6); White Blood Cell 9.3 10^3/uL (4.4-10.8)
[2022-01-09 07:20] LABS: Basophils % (auto) 0.2 % (0.0-2.0); Hematocrit 23.7 % (36.0-46.0); Mean Corpuscular Hemoglobin 34.4 pg (28.0-32.0); Mean Corpuscular Hgb Conc. 36.4 g/dL (32.0-36.0); Mean Corpuscular Volume 94.6 fL (80.0-100.0); Neutrophils % (auto) 68.8 % (37.0-80.0); Nucleated Red Blood Cells % 0.1 %; Red Cell Distribution Width 14.9 % (11.8-14.3)
[2022-01-09 07:39] LABS: BUN/Creatinine Ratio 34.8; Calcium 7.9 mg/dL (8.5-10.1); Magnesium 1.8 mg/dL (1.6-2.6); Potassium 4.3 mmol/L (3.5-5.1)
[2022-01-09] MEDS: ASCORBIC ACID 500 MG TAB PO SCH ×2 (09:37→21:47)
[2022-01-09] MEDS: MULTIPLE VITAMIN TAB PO SCH (09:37)
[2022-01-09] MEDS: ZINC SULFATE 220mg CAP or TAB PO SCH (09:37)
[2022-01-09] MEDS: FAMOTIDINE (10MG/ML) 2ML VL IV SCH ×2 (09:37→21:46)
[2022-01-09] MEDS: ASPirin 81 mg TAB PO SCH (09:38)
[2022-01-10 05:00] VITALS: BP 98/41
[2022-01-10] MEDS: traMADol HCL 50 MG TAB PO PRN (06:00)
[2022-01-10] MEDS: LEVOTHYROXINE SODIUM 25 MCG TAB PO SCH (06:00)
[2022-01-10 06:06] LABS: Basophils # (auto) 0 10 ^3/uL (0-0.2); Basophils % (auto) 0.1 % (0.0-2.0); Eosinophils # (auto) 0.1 10 ^3/uL (0-0.8); Eosinophils % (auto) 0.8 % (0.0-7.0); Hematocrit 23.4 % (36.0-46.0); Hemoglobin 8.4 g/dL (12.2-16.2); Lymphocytes # (auto) 1.7 10 ^3/uL (0.4-5.4); Lymphocytes % (auto) 29.1 % (10.0-50.0); Mean Corpuscular Hemoglobin 34.3 pg (28.0-32.0); Mean Corpuscular Hgb Conc. 36.1 g/dL (32.0-36.0); Mean Corpuscular Volume 95.2 fL (80.0-100.0); Monocytes % (auto) 16.2 % (0.0-12.0); Neutrophils # (auto) 3.2 10 ^3/uL (1.6-8.6); Neutrophils % (auto) 53.8 % (37.0-80.0); Nucleated Red Blood Cells % 0.1 %; Red Blood Cells 2.46 10^6/uL (4.0-5.20); Red Cell Distribution Width 14.6 % (11.8-14.3)
[2022-01-10 06:17] LABS: BUN/Creatinine Ratio 34.2; Magnesium 1.5 mg/dL (1.6-2.6); Potassium 3.5 mmol/L (3.5-5.1)
[2022-01-10 08:00] VITALS: BP 102/80
[2022-01-10] MEDS: FAMOTIDINE (10MG/ML) 2ML VL IV SCH (08:12)
[2022-01-10] MEDS: MULTIPLE VITAMIN TAB PO SCH (08:12)
[2022-01-10] MEDS: ZINC SULFATE 220mg CAP or TAB PO SCH (08:13)
[2022-01-10] MEDS: ASCORBIC ACID 500 MG TAB PO SCH (08:13)
[2022-01-10 09:26] VITALS: BP 99/38
[2022-01-10] MEDS ORDERED: ENOXAPARIN SOD 40 MG/0.4 ML SYRINGE SC SCH (10:00)
== END 2022-01-10 10:00 | DRG 956 ==
LOC: EDBD 13:55 → ER 13:56 → OVERFLOW 22:03 → WEST WING 23:54
PROVIDERS: ADMIT Nurse Practitioner Family; ATTEND Internal Medicine Geriatric Medicine
PROC: 30233R1 Transfusion of Nonautologous Platelets into Peripheral Vein, Percutaneous Approach (ICD-10-PCS; 2022-01-05)
PROC: 0SRR0JZ Replacement of Right Hip Joint, Femoral Surface with Synthetic Substitute, Open Approach (ICD-10-PCS; principal; 2022-01-07 10:12)
DX: S72.011A Unspecified intracapsular fracture of right femur, initial encounter for closed fracture (principal); S32.10XA Unspecified fracture of sacrum, initial encounter for closed fracture; D61.818 Other pancytopenia; J98.11 Atelectasis; N39.0 Urinary tract infection, site not specified; E03.9 Hypothyroidism, unspecified; E78.5 Hyperlipidemia, unspecified; E86.0 Dehydration; K21.9 Gastro-esophageal reflux disease without esophagitis; W18.39XA Other fall on same level, initial encounter; E88.09 Other disorders of plasma-protein metabolism, not elsewhere classified; I10 Essential (primary) hypertension; K59.00 Constipation, unspecified; K74.60 Unspecified cirrhosis of liver; E83.42 Hypomagnesemia; E87.6 Hypokalemia; F03.90 Unspecified dementia, unspecified severity, without behavioral disturbance, psychotic disturbance, mood disturbance, and anxiety; Z74.01 Bed confinement status; Z79.899 Other long term (current) drug therapy; Y93.89 Activity, other specified; Y92.098 Other place in other non-institutional residence as the place of occurrence of the external cause; Y99.8 Other external cause status
CPT/HCPCS: 36415; 36430; 70450; 71045; 72170; 72192; 73562; 73590; 73610; 73620; 80048; 80053; 81001; 83735; 85025; 85610; 85730; 86850; 86900; 86901; 86920; 87426; 93005; 93306; 93970; 96365; 96375; 97110; 97163; G0378; J0690; J1100; J2001; J2405; J2704; J3480; J3490; J7060; P9047

== ENCOUNTER 2022-01-31 02:58 | Inpatient (IN) | payer BC, MEDICARE ==
[2022-01-31] VITALS (8 sets, daily range): BP systolic 95–146; BP diastolic 39–64
[~2022-01-31] VITALS: Ht 177.8 cm; Wt 103.0 kg
[~2022-01-31 02:58] MED LIST changes: -AMIT50TA5 PO; +ASPI325T4 PO; -B-COCAP34 PO; +HYDR10TA26 PO; -IBUP200C3 PO; +LISI-275 PO; -LISI20TA28 PO; -OMEG306C PO; -OMEP-434 PO; +PANT40T PO; +QUET1TAB11 PO; +SENN1TAB14 PO; +TRAM50TA2 PO
[2022-01-31] MEDS ORDERED: ONDANSETRON HCL 4 MG/2 ML VIAL IV ONE (03:30)
[2022-01-31] MEDS ORDERED: SODIUM CHLORIDE 0.9% 1,000 ML IV ONE ×2 (03:30→05:30)
[2022-01-31 04:16] LABS: Albumin 2.2 g/dL (3.4-5.0); Calcium 8.6 mg/dL (8.5-10.1); Potassium 4.3 mmol/L (3.5-5.1)
[2022-01-31 04:19] LABS: Bilirubin, Total 1.8 mg/dL (0.2-1.0); Total Protein 5.6 g/dL (6.4-8.2)
[2022-01-31 04:26] LABS: INR 1.59 (0.9-1.15); Partial Thromboplastin Time 32.7 sec (24.6-33.4)
[2022-01-31 04:29] LABS: Basophils # (auto) 0 10 ^3/uL (0-0.2); Basophils % (auto) 0.1 % (0.0-2.0); Eosinophils # (auto) 0 10 ^3/uL (0-0.8); Hematocrit 31.3 % (36.0-46.0); Hemoglobin 10.6 g/dL (12.2-16.2); Lymphocytes # (auto) 0.5 10 ^3/uL (0.4-5.4); Lymphocytes % (auto) 2.1 % (10.0-50.0); Mean Corpuscular Hemoglobin 33.4 pg (28.0-32.0); Mean Corpuscular Volume 98.3 fL (80.0-100.0); Monocytes % (auto) 4.1 % (0.0-12.0); Neutrophils % (auto) 93.7 % (37.0-80.0); Red Blood Cells 3.19 10^6/uL (4.0-5.20); Red Cell Distribution Width 14.5 % (11.8-14.3); White Blood Cell 23.5 10^3/uL (4.4-10.8)
[2022-01-31] MEDS ORDERED: levoFLOXacin 500MG 100 ML IV ONE (04:45)
[2022-01-31 05:27] LABS: Urine Amorphous Crystal FEW /hpf (None Seen); Urine Bacteria MANY /hpf (None Seen); Urine Blood 2+ /uL (Negative); Urine Hyaline Cast FEW /lpf (0 - 2); Urine Mucus FEW (None Seen); Urine Specific Gravity 1.013 (1.001-1.035); Urine WBC 253 /hpf (0 - 5); Urine WBC Clumps PRESENT /hpf (None Seen)
[2022-01-31] MEDS ORDERED: ALBUMIN 25% 100 ML IV ONE (05:45)
[2022-01-31 06:26] LABS: Lactic Acid w/Reflex 7.6 mmol/L (0.4-2.0)
[2022-01-31] MEDS ORDERED: ONDANSETRON HCL 4 MG/2 ML VIAL IV PRN (08:00)
[2022-01-31] MEDS ORDERED: NITROGLYCERIN 0.4 MG SL TAB SL PRN (08:00)
[2022-01-31] MEDS ORDERED: MORPHINE SULFATE INJ 2 MG/ml SYRG IV PRN (08:00)
[2022-01-31] MEDS: metroNIDAZOLE 500MG/100ML 100 ML IV SCH ×3 (08:00→22:30)
[2022-01-31 08:39] LABS: Hematocrit 27.7 % (36.0-46.0); Hemoglobin 9.1 g/dL (12.2-16.2)
[2022-01-31] MEDS: cefTRIAXone 1GM/50ML D5W 50 ML IV SCH (09:22)
[2022-01-31] MEDS: SODIUM CHLORIDE 0.9% 1,000 ML IV SCH ×2 (09:22→12:17)
[2022-01-31] MEDS: PANTOPRAZOLE 40 MG/10 ML VIAL INJ IV SCH (10:00)
[2022-02-01] VITALS (7 sets, daily range): BP systolic 91–117; BP diastolic 32–89
[2022-02-01] MEDS: ACETAMINOPHEN 325 MG TAB PO PRN (00:42)
[2022-02-01] MEDS: metroNIDAZOLE 500MG/100ML 100 ML IV SCH ×3 (05:47→21:23)
[2022-02-01] MEDS: SODIUM CHLORIDE 0.9% 1,000 ML IV SCH ×3 (07:32→17:33)
[2022-02-01 08:48] LABS: Hematocrit 32.2 % (36.0-46.0); Hemoglobin 10.7 g/dL (12.2-16.2); Mean Corpuscular Hemoglobin 32.2 pg (28.0-32.0); Mean Corpuscular Hgb Conc. 33.3 g/dL (32.0-36.0); Mean Corpuscular Volume 96.9 fL (80.0-100.0); Red Blood Cells 3.32 10^6/uL (4.0-5.20); Red Cell Distribution Width 15.6 % (11.8-14.3); White Blood Cell 19.1 10^3/uL (4.4-10.8)
[2022-02-01 08:53] LABS: Basophils % (manual) 0 (0.0-2.0); Blast Cells 0; Eosinophils % (manual) 0 (0-7); Metamyelocytes % 0; Myelocytes % 0; Promyelocytes % 0; Reactive Lymphocytes 0
[2022-02-01 09:01] LABS: Potassium 5.3 mmol/L (3.5-5.1)
[2022-02-01 09:08] LABS: Albumin 2.3 g/dL (3.4-5.0); BUN/Creatinine Ratio 13.4; Bilirubin, Total 2.3 mg/dL (0.2-1.0); Magnesium 2.1 mg/dL (1.6-2.6); Total Protein 4.9 g/dL (6.4-8.2)
[2022-02-01 09:36] LABS: Band Neutrophils % (manual) 43; Lymphocytes % (manual) 5 (10.0-50.0); Monocytes % (manual) 8 (0-12)
[2022-02-01] MEDS ORDERED: LACTULOSE 20Gm/30ML SOLN PO PRN (09:45)
[2022-02-01] MEDS ORDERED: SODIUM CHLORIDE 0.9% 500 ML IV ONE (09:45)
[2022-02-01] MEDS: cefTRIAXone 1GM/50ML D5W 50 ML IV SCH (10:26)
[2022-02-01] MEDS: PANTOPRAZOLE 40 MG/10 ML VIAL INJ IV SCH (10:26)
[2022-02-01] MEDS: InsuLIN REG 1unit/0.01ml Soln (100units/ml) SC SCH ×3 (11:30→21:33)
[2022-02-01] MEDS ORDERED: DEXTROSE (50%) 50ML SYRG IV PRN (11:30)
[2022-02-01] MEDS: ACCU-CHEK COMFORT CURVE STRIP VI SCH ×3 (11:30→21:33)
[2022-02-01] MEDS ORDERED: SODIUM CHLORIDE 0.9% 1,000 ML IV ONE (19:00)
[2022-02-02 05:00] VITALS: BP 93/38
[2022-02-02] MEDS: metroNIDAZOLE 500MG/100ML 100 ML IV SCH ×3 (05:40→23:05)
[2022-02-02] MEDS: InsuLIN REG 1unit/0.01ml Soln (100units/ml) SC SCH ×4 (05:41→22:00)
[2022-02-02] MEDS: ACCU-CHEK COMFORT CURVE STRIP VI SCH ×4 (05:41→22:00)
[2022-02-02 06:24] LABS: Basophils # (auto) 0.1 10 ^3/uL (0-0.2); Basophils % (auto) 0.8 % (0.0-2.0); Eosinophils # (auto) 0 10 ^3/uL (0-0.8); Hemoglobin 10.3 g/dL (12.2-16.2); Lymphocytes % (auto) 6.3 % (10.0-50.0); Mean Corpuscular Hemoglobin 32.7 pg (28.0-32.0); Mean Corpuscular Hgb Conc. 33.1 g/dL (32.0-36.0); Mean Corpuscular Volume 98.6 fL (80.0-100.0); Monocytes # (auto) 1.4 10 ^3/uL (0-1.3); Monocytes % (auto) 8.9 % (0.0-12.0); Nucleated Red Blood Cells % 0.1 %; Red Blood Cells 3.14 10^6/uL (4.0-5.20); Red Cell Distribution Width 15.6 % (11.8-14.3); White Blood Cell 15.4 10^3/uL (4.4-10.8)
[2022-02-02 06:40] LABS: Potassium 4.8 mmol/L (3.5-5.1)
[2022-02-02 08:00] VITALS: BP 110/50
[2022-02-02 08:52] VITALS: BP 110/50
[2022-02-02] MEDS: PANTOPRAZOLE 40 MG/10 ML VIAL INJ IV SCH (09:21)
[2022-02-02] MEDS: SODIUM CHLORIDE 0.9% 1,000 ML IV SCH (09:21)
[2022-02-02] MEDS: cefTRIAXone 1GM/50ML D5W 50 ML IV SCH (09:21)
[2022-02-02] MEDS: SODIUM BICARBONATE 50ML VIAL 50 ML in SOD CHL 0.45% 1,000 ML IV SCH ×2 (11:30→13:30)
[2022-02-02] MEDS ORDERED: SODIUM CHLORIDE 0.9% 1,000 ML IV ONE (11:45)
[2022-02-02 12:33] VITALS: BP 97/43
[2022-02-02 16:40] VITALS: BP 116/52
[2022-02-02 22:00] VITALS: BP 122/58
[2022-02-03 05:00] VITALS: BP 102/51
[2022-02-03] MEDS: SODIUM BICARBONATE 50ML VIAL 50 ML in SOD CHL 0.45% 1,000 ML IV SCH ×3 (05:00→15:42)
[2022-02-03 05:39] LABS: Basophils # (auto) 0 10 ^3/uL (0-0.2); Basophils % (auto) 0.3 % (0.0-2.0); Eosinophils # (auto) 0 10 ^3/uL (0-0.8); Eosinophils % (auto) 0.1 % (0.0-7.0); Hemoglobin 10.4 g/dL (12.2-16.2); Lymphocytes # (auto) 1.3 10 ^3/uL (0.4-5.4); Lymphocytes % (auto) 12.6 % (10.0-50.0); Mean Corpuscular Hemoglobin 33.7 pg (28.0-32.0); Mean Corpuscular Hgb Conc. 34.5 g/dL (32.0-36.0); Mean Corpuscular Volume 97.7 fL (80.0-100.0); Monocytes % (auto) 9.4 % (0.0-12.0); Neutrophils # (auto) 8.3 10 ^3/uL (1.6-8.6); Neutrophils % (auto) 77.6 % (37.0-80.0); Nucleated Red Blood Cells % 0.1 %; Red Blood Cells 3.08 10^6/uL (4.0-5.20); Red Cell Distribution Width 15.5 % (11.8-14.3); White Blood Cell 10.7 10^3/uL (4.4-10.8)
[2022-02-03 06:03] LABS: BUN/Creatinine Ratio 19.5; Calcium 7.7 mg/dL (8.5-10.1); Potassium 4.2 mmol/L (3.5-5.1)
[2022-02-03] MEDS: InsuLIN REG 1unit/0.01ml Soln (100units/ml) SC SCH ×4 (07:00→21:26)
[2022-02-03] MEDS: ACCU-CHEK COMFORT CURVE STRIP VI SCH ×4 (07:13→21:25)
[2022-02-03] MEDS: metroNIDAZOLE 500MG/100ML 100 ML IV SCH ×3 (07:14→21:25)
[2022-02-03 08:00] VITALS: BP_SYST 104; BP_SYST 97; BP_DIAS 48; BP_DIAS 49
[2022-02-03] MEDS: PANTOPRAZOLE 40 MG/10 ML VIAL INJ IV SCH (09:41)
[2022-02-03] MEDS: cefTRIAXone 1GM/50ML D5W 50 ML IV SCH (09:41)
[2022-02-03 12:00] VITALS: BP 97/49
[2022-02-03] MEDS: DOPamine 1600MCG/ML D5W 250 ML IV SCH (13:36)
[2022-02-03 16:00] VITALS: BP 93/46
[2022-02-03 20:00] VITALS: BP 103/55
[2022-02-03 22:00] VITALS: BP 103/55
[2022-02-04] VITALS (7 sets, daily range): BP systolic 71–103; BP diastolic 42–83
[2022-02-04] MEDS: metroNIDAZOLE 500MG/100ML 100 ML IV SCH ×3 (05:58→21:28)
[2022-02-04] MEDS: InsuLIN REG 1unit/0.01ml Soln (100units/ml) SC SCH ×4 (06:19→21:29)
[2022-02-04] MEDS: ACCU-CHEK COMFORT CURVE STRIP VI SCH ×4 (06:20→21:28)
[2022-02-04 06:36] LABS: Hemoglobin 11.5 g/dL (12.2-16.2); White Blood Cell 7.8 10^3/uL (4.4-10.8)
[2022-02-04 06:38] LABS: Hematocrit 34.4 % (36.0-46.0); Mean Corpuscular Hemoglobin 35.6 pg (28.0-32.0); Mean Corpuscular Hgb Conc. 33.5 g/dL (32.0-36.0); Mean Corpuscular Volume 106.4 fL (80.0-100.0); Red Blood Cells 3.24 10^6/uL (4.0-5.20); Red Cell Distribution Width 16.8 % (11.8-14.3)
[2022-02-04 06:56] LABS: Potassium 3.9 mmol/L (3.5-5.1)
[2022-02-04 07:03] LABS: Basophils % (manual) 0 (0.0-2.0); Blast Cells 0; Eosinophils % (manual) 0 (0-7); Promyelocytes % 0; Reactive Lymphocytes 0
[2022-02-04 07:08] LABS: BUN/Creatinine Ratio 20.5; Calcium 8.2 mg/dL (8.5-10.1)
[2022-02-04 07:28] LABS: Band Neutrophils % (manual) 37; Lymphocytes % (manual) 20 (10.0-50.0); Metamyelocytes % 3; Monocytes % (manual) 12 (0-12); Myelocytes % 1
[2022-02-04] MEDS: cefTRIAXone 1GM/50ML D5W 50 ML IV SCH (08:59)
[2022-02-04] MEDS: PANTOPRAZOLE 40 MG/10 ML VIAL INJ IV SCH (09:01)
[2022-02-04] MEDS: DOPamine 1600MCG/ML D5W 250 ML IV SCH (09:01)
[2022-02-04] MEDS: SODIUM BICARBONATE 50ML VIAL 50 ML in SOD CHL 0.45% 1,000 ML IV SCH ×2 (16:00→18:15)
[2022-02-04 17:10] LABS: Hepatitis C Antibody Negative (Negative)
[2022-02-05] VITALS (9 sets, daily range): BP systolic 76–139; BP diastolic 33–69
[2022-02-05] MEDS: SODIUM BICARBONATE 50ML VIAL 50 ML in SOD CHL 0.45% 1,000 ML IV SCH ×3 (00:45→18:15)
[2022-02-05] MEDS: metroNIDAZOLE 500MG/100ML 100 ML IV SCH ×3 (06:00→22:44)
[2022-02-05 06:25] LABS: Anion Gap 11 (5-15); Blood Urea Nitrogen 50 mg/dL (7-18); Carbon Dioxide 18 mmol/L (21-32); Chloride 115 mmol/L (98-107); Glucose 118 mg/dL (74-106); Potassium 3.5 mmol/L (3.5-5.1); Sodium 144 mmol/L (136-145)
[2022-02-05 06:27] LABS: BUN/Creatinine Ratio 18.7; GFR African American 22 mL/min; GFR Non-African American 18 mL/min
[2022-02-05] MEDS ORDERED: ALBUMIN 25% 50 ML IV ONE (06:30)
[2022-02-05] MEDS: ACCU-CHEK COMFORT CURVE STRIP VI SCH ×4 (06:39→22:44)
[2022-02-05] MEDS: InsuLIN REG 1unit/0.01ml Soln (100units/ml) SC SCH ×4 (06:39→22:00)
[2022-02-05 07:05] LABS: Red Cell Distribution Width 15.5 % (11.8-14.3)
[2022-02-05 07:33] LABS: Hematocrit 27.4 % (36.0-46.0); Hemoglobin 9.5 g/dL (12.2-16.2); Mean Corpuscular Hemoglobin 35.5 pg (28.0-32.0); Mean Corpuscular Hgb Conc. 34.8 g/dL (32.0-36.0); Mean Corpuscular Volume 102.1 fL (80.0-100.0); Red Blood Cells 2.68 10^6/uL (4.0-5.20); White Blood Cell 13.8 10^3/uL (4.4-10.8)
[2022-02-05 07:43] LABS: Basophils % (manual) 0 (0.0-2.0); Blast Cells 0; Myelocytes % 0; Promyelocytes % 0; Reactive Lymphocytes 0
[2022-02-05] MEDS ORDERED: DOPamine 1600MCG/ML D5W 250 ML IV SCH ×2 (08:30→15:15)
[2022-02-05 08:50] LABS: Band Neutrophils % (manual) 32; Eosinophils % (manual) 1 (0-7); Lymphocytes % (manual) 37 (10.0-50.0); Metamyelocytes % 1; Monocytes % (manual) 15 (0-12)
[2022-02-05] MEDS: cefTRIAXone 1GM/50ML D5W 50 ML IV SCH (09:00)
[2022-02-05] MEDS: PANTOPRAZOLE 40 MG/10 ML VIAL INJ IV SCH (10:00)
[2022-02-05] MEDS: MIDODRINE HCL 10 MG TAB PO SCH ×2 (12:00→18:00)
[2022-02-05] MEDS ORDERED: NOREPINEPHRINE 8 MG/250ML KIT 0 ML IV ONE (14:55)
[2022-02-05] MEDS ORDERED: NOREPINEPHRINE 8 MG/250ML KIT 250 ML IV SCH (15:15)
[2022-02-05] MEDS: DOPamine 1600MCG/ML D5W 250 ML IV SCH (21:02)
[2022-02-06] MEDS: SODIUM BICARBONATE 50ML VIAL 50 ML in SOD CHL 0.45% 1,000 ML IV SCH ×4 (03:00→23:17)
[2022-02-06] MEDS: DOPamine 1600MCG/ML D5W 250 ML IV SCH ×2 (05:37→18:44)
[2022-02-06] MEDS: MIDODRINE HCL 10 MG TAB PO SCH ×3 (06:00→17:34)
[2022-02-06 06:26] VITALS: BP 113/53
[2022-02-06] MEDS: metroNIDAZOLE 500MG/100ML 100 ML IV SCH ×3 (06:26→21:40)
[2022-02-06] MEDS: InsuLIN REG 1unit/0.01ml Soln (100units/ml) SC SCH ×4 (06:27→21:44)
[2022-02-06] MEDS: ACCU-CHEK COMFORT CURVE STRIP VI SCH ×4 (06:27→21:45)
[2022-02-06] MEDS: cefTRIAXone 1GM/50ML D5W 50 ML IV SCH (08:56)
[2022-02-06] MEDS: PANTOPRAZOLE 40 MG/10 ML VIAL INJ IV SCH (08:56)
[2022-02-06 09:00] VITALS: BP 95/45
[2022-02-06 09:36] LABS: Hematocrit 31.5 % (36.0-46.0); Hemoglobin 10.7 g/dL (12.2-16.2); Mean Corpuscular Hemoglobin 33.7 pg (28.0-32.0); Mean Corpuscular Hgb Conc. 34.1 g/dL (32.0-36.0); Mean Corpuscular Volume 98.9 fL (80.0-100.0); Red Blood Cells 3.18 10^6/uL (4.0-5.20); Red Cell Distribution Width 15.6 % (11.8-14.3)
[2022-02-06 09:48] LABS: Basophils % (manual) 0 (0.0-2.0); Blast Cells 0; Metamyelocytes % 0; Promyelocytes % 0; Reactive Lymphocytes 0
[2022-02-06 09:50] LABS: BUN/Creatinine Ratio 20.9; Calcium 7.7 mg/dL (8.5-10.1); Potassium 3.9 mmol/L (3.5-5.1)
[2022-02-06 11:55] LABS: Band Neutrophils % (manual) 23; Eosinophils % (manual) 1 (0-7); Lymphocytes % (manual) 12 (10.0-50.0); Monocytes % (manual) 7 (0-12); Myelocytes % 4
[2022-02-06 13:00] VITALS: BP 106/63
[2022-02-06 16:37] VITALS: BP 113/63
[2022-02-06 22:00] VITALS: BP 129/55
[2022-02-07 05:00] VITALS: BP 137/62
[2022-02-07] MEDS: metroNIDAZOLE 500MG/100ML 100 ML IV SCH (05:25)
[2022-02-07] MEDS: ACCU-CHEK COMFORT CURVE STRIP VI SCH ×2 (05:40→11:30)
[2022-02-07] MEDS: InsuLIN REG 1unit/0.01ml Soln (100units/ml) SC SCH ×2 (05:40→11:30)
[2022-02-07] MEDS: MIDODRINE HCL 10 MG TAB PO SCH ×2 (05:41→21:44)
[2022-02-07 07:39] LABS: Hematocrit 28.9 % (36.0-46.0); Hemoglobin 9.9 g/dL (12.2-16.2); Mean Corpuscular Hemoglobin 32.7 pg (28.0-32.0); Mean Corpuscular Hgb Conc. 34.3 g/dL (32.0-36.0); Mean Corpuscular Volume 95.4 fL (80.0-100.0); Red Blood Cells 3.03 10^6/uL (4.0-5.20); Red Cell Distribution Width 15.4 % (11.8-14.3); White Blood Cell 12.3 10^3/uL (4.4-10.8)
[2022-02-07 07:53] LABS: BUN/Creatinine Ratio 21.5; Calcium 7.2 mg/dL (8.5-10.1); Potassium 3.4 mmol/L (3.5-5.1)
[2022-02-07 07:58] LABS: Basophils % (manual) 0 (0.0-2.0); Blast Cells 0; Eosinophils % (manual) 0 (0-7); Metamyelocytes % 0; Myelocytes % 0; Promyelocytes % 0; Reactive Lymphocytes 0
[2022-02-07 08:42] VITALS: BP 88/47
[2022-02-07] MEDS: PANTOPRAZOLE 40 MG/10 ML VIAL INJ IV SCH (09:38)
[2022-02-07] MEDS: cefTRIAXone 1GM/50ML D5W 50 ML IV SCH (09:45)
[2022-02-07 09:47] LABS: Band Neutrophils % (manual) 2; Lymphocytes % (manual) 14 (10.0-50.0); Monocytes % (manual) 11 (0-12)
[2022-02-07] MEDS: DOPamine 1600MCG/ML D5W 250 ML IV SCH (09:50)
[2022-02-07] MEDS: SODIUM BICARBONATE 50ML VIAL 50 ML in SOD CHL 0.45% 1,000 ML IV SCH (09:51)
[2022-02-07 13:00] VITALS: BP 67/27
[2022-02-07 17:28] VITALS: BP 74/40
[2022-02-07] MEDS: ACETAMINOPHEN 325 MG TAB PO PRN (21:43)
[2022-02-07 22:00] VITALS: BP 97/39
[2022-02-08 05:00] VITALS: BP 97/33
[2022-02-08] MEDS: MIDODRINE HCL 10 MG TAB PO SCH ×2 (07:05→12:23)
[2022-02-08 08:00] VITALS: BP 99/46
[2022-02-08 09:10] VITALS: BP 99/46
[2022-02-08] MEDS: PANTOPRAZOLE 40 MG/10 ML VIAL INJ IV SCH (10:29)
[2022-02-08] MEDS ORDERED: MID10T PO (11:36)
[2022-02-08] MEDS ORDERED: METR500T PO (11:39)
[2022-02-08] MEDS ORDERED: CIPR250T3 PO (11:39)
[2022-02-08] MEDS: ACETAMINOPHEN 325 MG TAB PO PRN (12:23)
[2022-02-08 13:00] VITALS: BP 102/47
[2022-02-08 13:58] VITALS: BP 102/47
[2022-02-08] MEDS ORDERED: hydrALAZINE HCL 20 MG/ML VL IV ONE (15:30)
[2022-02-08] MEDS ORDERED: hydrALAZINE HCL 20 MG/ML VL IV PRN (18:00)
== END 2022-02-08 16:49 | disposition hospice, home (50) | DRG 871 ==
LOC: EDUNIT# 02:58 → ER 02:58 → EDBD 02:58 → TELE 07:55 → TELE-WESTW 14:21
PROVIDERS: ADMIT Nurse Practitioner; ATTEND Internal Medicine Geriatric Medicine
PROC: 30233N1 Transfusion of Nonautologous Red Blood Cells into Peripheral Vein, Percutaneous Approach (ICD-10-PCS; principal; 2022-01-31)
PROC: 05HF33Z Insertion of Infusion Device into Left Cephalic Vein, Percutaneous Approach (ICD-10-PCS; 2022-02-05)
PROC: B54NZZA Ultrasonography of Left Upper Extremity Veins, Guidance (ICD-10-PCS; 2022-02-05)
DX: A41.9 Sepsis, unspecified organism (principal); G93.41 Metabolic encephalopathy; N17.0 Acute kidney failure with tubular necrosis; R65.21 Severe sepsis with septic shock; N39.0 Urinary tract infection, site not specified; E44.0 Moderate protein-calorie malnutrition; K57.32 Diverticulitis of large intestine without perforation or abscess without bleeding; N18.9 Chronic kidney disease, unspecified; D64.9 Anemia, unspecified; F32.A Depression, unspecified; I12.9 Hypertensive chronic kidney disease with stage 1 through stage 4 chronic kidney disease, or unspecified chronic kidney disease; E78.5 Hyperlipidemia, unspecified; K21.9 Gastro-esophageal reflux disease without esophagitis; Z66 Do not resuscitate; K56.41 Fecal impaction; Z74.01 Bed confinement status; Z51.5 Encounter for palliative care; E11.22 Type 2 diabetes mellitus with diabetic chronic kidney disease; E87.5 Hyperkalemia; Z68.27 Body mass index [BMI] 27.0-27.9, adult; Z80.0 Family history of malignant neoplasm of digestive organs; Z86.16 Personal history of COVID-19
CPT/HCPCS: 36415; 36430; 70450; 71045; 71250; 74176; 76775; 80048; 80053; 81001; 82140; 82270; 82306; 82962; 83605; 83735; 83970; 84100; 85007; 85014; 85018; 85025; 85027; 85048; 85610; 85730; 86803; 86850; 86900; 86901; 86920; 87040; 87086; 87088; 87186; 87340; 87426; 87804; 96361; 96365; 99291; C9113; G0378; J0696; J1815; J1956; J3490; P9047